=== PATIENT | female | born 1990 | race American Indian/Alaskan Native ===

== ENCOUNTER 2016-07-22 13:57 | Emergency (ER) | payer SELFPAY ==
[2016-07-22 14:26] VITALS: BP 136/93
--- NOTE | 2016-07-22 16:20 | Emergency Department Report ---
- General Chief complaint: Skin/Abscess/Foreign Body Stated complaint: RT ARMPIT POSS STAPH INFECTION Time Seen by Provider: 07/22/16 16:19 Source: patient Mode of arrival: Ambulatory Limitations: No Limitations - History of Present Illness MD complaint: abscess/boil -: days(s) - Related Data Allergies Allergy/AdvReac Type Severity Reaction Status Date / Time Sulfa (Sulfonamide AdvReac Intermediate Itching Unverified 11/12/14 13:16 Antibiotics) Abscess Boil HPI - HPI Chief Complaint: Skin/Abscess/Foreign Body Stated Complaint: RT ARMPIT POSS STAPH INFECTION Time Seen by Provider: 07/22/16 16:19 Duration: 3 Days Location: Other (right axilla) History: Yes Pain, No Fever, No Purulent Drainage Allergies/Adverse Reactions: Allergies Allergy/AdvReac Type Severity Reaction Status Date / Time Sulfa (Sulfonamide AdvReac Intermediate Itching Unverified 11/12/14 13:16 Antibiotics) ED Review of Systems ROS: Stated complaint: RT ARMPIT POSS STAPH INFECTION Other details as noted in HPI Constitutional: denies: chills, diaphoresis, fever, malaise ENT: denies: ear pain, throat pain Gastrointestinal: denies: abdominal pain, nausea, vomiting Musculoskeletal: back pain Skin: other Neurological: denies: headache (abscess) ED Past Medical Hx - Past Medical History Hx Seizures: Yes - Surgical History Past Surgical History?: No - Social History Smoking Status: Never Smoker Substance Use Type: None ED Physical Exam - General Limitations: No Limitations General appearance: alert, in no apparent distress - Head Head exam: Present: atraumatic, normocephalic - Eye Eye exam: Present: normal appearance, PERRL, EOMI - ENT ENT exam: Absent: normal exam, normal orophraynx, mucous membranes dry - Neck Neck exam: Present: normal inspection, full ROM. Absent: lymphadenopathy - Respiratory Respiratory exam: Present: normal lung sounds bilaterally. Absent: respiratory distress - Extremities Exam Extremities exam: Present: full ROM, normal capillary refill, other (right axillary cutaneous abscess) ED Course Vital Signs 07/22/16 14:22 Temperature 99.4 F Pulse Rate 88 Respiratory 22 Rate Blood Pressure 136/93 O2 Sat by Pulse 99 Oximetry - I & D Right Shoulder Type of Procedure: Simple Blade Size: 11 I & D Procedure: betadine prep, sterile drapes applied, sterile dressing applied , gauze wick placed Progress: Large cutaneous right axillary abscess. Anesthetized with 3 mL 1% lidocaine and incised with #11 scalpel draining copious amount of purulent discharge applied iodoform wick placed sterile dressing. Patient tolerated procedure would not permit Deloculation and lavage of the abscess cavity. He understands return in 48 hours for recheck. Critical care attestation.: If time is entered above; I have spent that time in minutes in the direct care of this critically ill patient, excluding procedure time. ED Disposition Clinical Impression: Axillary abscess Disposition: DISCHARGED TO HOME OR SELFCARE Is pt being admited?: No Condition: Stable Instructions: Dental Abscess (ED), Abscess Incision and Drainage (ED)
[2016-07-22] MEDS ORDERED: NORCO 5/325 PO ONE (16:30)
[2016-07-22] MEDS ORDERED: XYLOCAINE 1% 20 mL INFILTRATI ONE (16:30)
== END 2016-07-22 17:35 | disposition home or self-care (01) ==
LOC: ED 13:57
DX: L02.411 Cutaneous abscess of right axilla (principal); R56.9 Unspecified convulsions; Z88.2 Allergy status to sulfonamides

== ENCOUNTER 2017-09-10 08:18 | Emergency (ER) | payer MEDICAID ==
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
[2017-09-10 09:16] LABS: HCG Qualitative,Urine Negative (Negative)
[2017-09-10 12:40] VITALS: BP 112/68
--- NOTE | 2017-09-14 12:56 | Cat Scan Report ---
CT FACIAL BONES WITHOUT CONTRAST: HISTORY: Right sided facial swelling and pain. TECHNIQUE: Helical CT images with sagittal and coronal CT reformations. FINDINGS: All paranasal sinuses are clear. No sinus wall fracture, fluid level or opacification. The orbital cavities are symmetric and intact. The mandible is intact. The skull base and upper cervical spine demonstrate no evidence for acute injury. IMPRESSION: Unremarkable CT of the facial bones.
--- NOTE | 2017-09-14 12:56 | Cat Scan Report ---
CT HEAD WITHOUT CONTRAST: HISTORY: Right sided pain and swelling. TECHNIQUE: Sequential 2.5mm CT images. COMPARISON: none. FINDINGS: Cerebral Parenchyma: Within normal limits. Cerebellum: Within normal limits. Brainstem: Within normal limits. Ventricles: Normal. Sella: Normal. Extra-axial spaces: Normal. Basal Cisterns: Normal. Intracranial Hemorrhage: None. Midline Shift: None. Calvarium: Normal. Sinuses: Normal. Mastoid Air Cells: Normal. Visualized Orbits: Normal. IMPRESSION: Cranial CT scan within normal limits.
== END 2017-09-10 12:38 | disposition home or self-care (01) ==
LOC: ED 08:18
DX: R51 Headache (principal); Z88.2 Allergy status to sulfonamides; Y04.2XXA Assault by strike against or bumped into by another person, initial encounter; Y93.89 Activity, other specified; Y99.8 Other external cause status; Y92.89 Other specified places as the place of occurrence of the external cause
CPT/HCPCS: 70450; 70486; 81025

== ENCOUNTER 2017-10-28 00:10 | Emergency (ER) | payer MEDICAID ==
[2017-10-28 01:28] VITALS: BP 109/82
--- NOTE | 2017-10-28 03:58 | Emergency Department Report ---
[facility] Chief Complaint: Eye Problems Stated Complaint: RT EYE IRRITATION Time Seen by Provider: 10/28/17 03:10 Duration: 2 Days Side: Bilateral Severity: mild Symptoms: Yes Eye Itching, Yes Eye Redness, No Eye Pain, No Mucous Drainage, No Purulent Drainage, No Blurred Vision, No Preceding URI, No H/O Allergic Rhinitis , No Contact Lens Use, No Trauma, No Fever, No Headache Other History: This is a 26-year-old female nontoxic, well nourished in appearance, no acute signs of distress presents to the ED with c/o of bilateral eye redness, itching and crusting 2 days. Patient stated that symptoms started with right eye and now both eyes are similar. Patient denies any eye pain. Patient denies any blurred vision, or visual changes. Patient denies any chest pain, short of breath, fever, chills, nausea, vomiting, headache or stiff neck. Patient denies any significant past medical history with allergies to sulfa. ED Review of Systems ROS: Stated complaint: RT EYE IRRITATION Other details as noted in HPI Constitutional: denies: chills, fever Eyes: eye discharge. denies: eye pain, vision change ENT: denies: ear pain, throat pain Respiratory: denies: cough, shortness of breath, wheezing Cardiovascular: denies: chest pain, palpitations Endocrine: no symptoms reported Gastrointestinal: denies: abdominal pain, nausea, diarrhea Genitourinary: denies: urgency, dysuria, discharge Musculoskeletal: denies: back pain, joint swelling, arthralgia Skin: denies: rash, lesions Neurological: denies: headache, weakness, paresthesias Psychiatric: denies: anxiety, depression Hematological/Lymphatic: denies: easy bleeding, easy bruising ED Past Medical Hx - Past Medical History Previous Medical History?: No Hx Seizures: Yes - Surgical History Past Surgical History?: No - Social History Smoking Status: Never Smoker Substance Use Type: None - Medications Home Medications: Home Medications Medication Instructions Recorded Confirmed Last Taken Type Sulfamethoxazole/Trimethoprim 1 each PO BID #20 tablet 07/22/16 Unknown Rx [Bactrim DS TAB] traMADol [Ultram 50 MG tab] 50 mg PO Q4HR PRN #15 tablet 07/22/16 Unknown Rx Ibuprofen 800 mg PO Q6H PRN #20 tablet 09/10/17 Unknown Rx Ciprofloxacin 0.3% (Nf) 2 drops OU TID #1 drops 10/28/17 Unknown Rx [Ciprofloxacin OPTH] [facility] Exam - Exam General: Vital signs noted. No distress. Alert and acting appropriately. GENERAL: The patient is a well-developed, well-nourished in no apparent distress. Patient is alert and acting appropriately for age. Alert and oriented 3, no apparent distress, normal gait, atraumatic. HEENT: Head is normocephalic and atraumatic. PERRL, Extraocular muscles are intact. Pupils are equal, round, and reactive to light and accommodation. Bilateral erythema of sclera, itching and crusting. Nares appeared normal. Mouth is well hydrated and without lesions. Mucous membranes are moist. Posterior pharynx clear of any exudate or lesions. Mouth is well hydrated and without lesions. Tonsils not erythematous or swollen. Uvula midline. Tongue elevated. Mucous members are moist. Posterior pharynx clear, no exudate or lesions. Patent airways. NECK: Supple. No carotid bruits. No lymphadenopathy or thyromegaly.nontender. No meningitic signs are noted. LUNGS: Clear to auscultation. Non labor breathing. No intercostal retractions. Symmetrical with respiration, no wheezing, no rales, or crackles. HEART: Regular rate and rhythm without murmur, rubs or gallops. No reproducible. S1, S2 present, regular rate and rhythm without murmur, no rubs, no gallops. ABDOMEN: Soft, nontender, and nondistended. Positive bowel sounds. No hepatosplenomegaly was noted. No guarding or rebound tenderness, negative epigastric bruit. Negative psoas sign, negative camacho sign, negative McBurneys sign EXTREMITIES: Without any cyanosis, clubbing, rash, lesions or edema. Peripheral pulses intact. Capillary refill less than 2 seconds. Full range of motion bilaterally. NEUROLOGIC: Cranial nerves II through XII are grossly intact. Alert and oriented x 3. Normal gait. Symmetrical strength and sensation. Reflexes 2+ throughout. Cerebellar testing normal. GCS score of 15. PSYCHIATRIC: Normal affect with no suicidal or homicidal ideations. Eye Exam: Neither Injection, Neither Chemosis, Neither Abnormal Pupil, Neither EOMI, Neither Eye Foreign Body, Neither Lid Foreign Body, Neither Mucous Discharge, Neither Purulent Discharge, Neither Fluorescein Uptake, Neither Fluorescein Uptake (slit lamp), Neither Cell/Flare (slit lamp), Neither Corneal Edema, Neither Photophobia HEENT: No Nasal Congestion, No Pharyngeal Erythema Remainder of HEENT: Normal Lungs: Yes Clear Lung Sounds, Yes Good Air Exchange, No Wheezes, No Stridor, No Cough, No Nasal Flaring, No Retractions, No Use of Accessory Muscles ED Course Vital Signs 10/28/17 01:21 Temperature 98.3 F Pulse Rate 71 Respiratory 16 Rate Blood Pressure 109/82 O2 Sat by Pulse 100 Oximetry - Reevaluation(s) Reevaluation #1: 10/28/17 03:55 Patient is speaking in full sentences with no signs of distress noted. Critical care attestation.: If time is entered above; I have spent that time in minutes in the direct care of this critically ill patient, excluding procedure time. ED Disposition Clinical Impression: Conjunctivitis, both eyes Qualifiers: Conjunctivitis type: acute Acute conjunctivitis type: bacterial Qualified Code( s): H10.33 - Unspecified acute conjunctivitis, bilateral Disposition: - TO HOME OR SELFCARE Is pt being admited?: No Does the pt Need Aspirin: No Condition: Stable Instructions: Conjunctivitis (ED) Additional Instructions: Follow-up with a chief of party in 3-5 days or if symptoms worsen and continue return to emergency room as soon as possible. Prescriptions: Ciprofloxacin 0.3% (Nf) [Ciprofloxacin OPTH] 2 drops OU TID #1 drops Referrals: PRIMARY CAREMD [Primary Care Provider] - 3-5 Days AMERICO RAMIREZ MD [Staff Physician] - 3-5 Days [facility] [Outside] - 3-5 Days [facility] [Outside] - 3-5 Days Forms: Work/School Release Form(ED)
== END 2017-10-28 04:00 | disposition home or self-care (01) ==
LOC: ED 00:10
DX: H10.33 Unspecified acute conjunctivitis, bilateral (principal); Z88.2 Allergy status to sulfonamides
CPT/HCPCS: 99282

== ENCOUNTER 2018-09-10 19:28 | Emergency (ER) | payer MEDICAID ==
[2018-09-10] MEDS ORDERED: KEPPRA 1,000 MG/NS 0.75% 100ML 1,000 MG/100 ML BAG IV ONE (20:16)
[2018-09-10] MEDS ORDERED: NACL 0.9% 1000 ML 1,000 ML IV ONE (20:16)
--- NOTE | 2018-09-10 20:22 | Emergency Department Report ---
ED Seizure HPI - General Chief Complaint: Seizure Stated Complaint: SEIZURE,ABSCESS BOTH ARMS Time Seen by Provider: 09/10/18 20:13 Source: patient Mode of arrival: Ambulatory Limitations: No Limitations - History of Present Illness Initial Comments: Patient is 27 years old female with history of seizure. Patient presented to the ER was one episode of seizure, generalized tonic clonic seizure. Patient stated that she is out of her Keppra for the last 3 days. Patient denied any injury. No fever, chills, nausea or vomiting. Patient also denied any headache. Patient is complaining of bilateral swelling in her axilla for the last 4 weeks on and off. Patient had history of suppurative hydradenitis. MD Complaint: seizure -: This afternoon Description of Episode: loss of consciousness, tonic-clonic movement, post-event confusion Witnessed:: Yes Trauma: No Seizure History: known seizure disorder Place: home Possible Precipitating Event: none Associated Symptoms: denies other symptoms - Related Data Home Medications Medication Instructions Recorded Confirmed Last Taken levETIRAcetam [Keppra TAB] 750 mg PO BID 09/10/18 09/10/18 09/07/18 Allergies Allergy/AdvReac Type Severity Reaction Status Date / Time Sulfa (Sulfonamide AdvReac Intermediate Itching Verified 09/10/17 08:19 Antibiotics) ED Review of Systems ROS: Stated complaint: SEIZURE,ABSCESS BOTH ARMS Other details as noted in HPI Comment: All other systems reviewed and negative Constitutional: denies: chills, fever Respiratory: denies: cough, shortness of breath Cardiovascular: denies: chest pain, palpitations Gastrointestinal: denies: abdominal pain, nausea, vomiting Skin: lesions Neurological: denies: headache, weakness ED Past Medical Hx - Past Medical History Previous Medical History?: Yes Hx Seizures: Yes Hx Psychiatric Treatment: Yes (Bipolar) - Surgical History Past Surgical History?: No - Social History Smoking Status: Never Smoker Substance Use Type: None - Medications Home Medications: Home Medications Medication Instructions Recorded Confirmed Last Taken Type levETIRAcetam [Keppra TAB] 750 mg PO BID 09/10/18 09/10/18 09/07/18 History ED Physical Exam - General Limitations: No Limitations General appearance: alert, in no apparent distress - Head Head exam: Present: atraumatic, normocephalic, normal inspection - Eye Eye exam: Present: normal appearance, PERRL - ENT ENT exam: Present: normal exam, normal orophraynx, mucous membranes moist - Neck Neck exam: Present: normal inspection, full ROM. Absent: tenderness, meningismus, lymphadenopathy, thyromegaly - Respiratory Respiratory exam: Present: normal lung sounds bilaterally - Cardiovascular Cardiovascular Exam: Present: regular rate, normal rhythm, normal heart sounds - GI/Abdominal GI/Abdominal exam: Present: soft, normal bowel sounds. Absent: distended, tenderness, guarding, rebound, rigid, organomegaly, mass, bruit, pulsatile mass, hernia - Extremities Exam Extremities exam: Present: normal inspection, full ROM, normal capillary refill - Neurological Exam Neurological exam: Present: alert, oriented X3, CN II-XII intact - Skin Skin exam: Present: warm, erythema, other (bilateral suppurative hidradenitis, not fluctuant.) ED Course Vital Signs 09/10/18 09/10/18 09/10/18 19:35 19:57 20:00 Temperature 98.7 F 98.3 F Pulse Rate 119 H 97 H Respiratory 18 16 Rate Blood Pressure 104/63 94/60 Blood Pressure 90/64 [Left] O2 Sat by Pulse 98 100 100 Oximetry 09/10/18 09/10/18 21:00 23:00 Temperature Pulse Rate Respiratory Rate Blood Pressure 94/60 98/60 Blood Pressure [Left] O2 Sat by Pulse 100 Oximetry ED Medical Decision Making - Lab Data Result diagrams: 09/10/18 20:26 09/10/18 20:26 - Medical Decision Making Patient is 27 years old female with history of seizure. Patient presented to [facility] ER was one episode of seizure, generalized tonic clonic seizure. Patient stated that she is out of her Keppra for the last 3 days. Patient denied any injury. No fever, chills, nausea or vomiting. Patient also denied any headache. Patient is complaining of bilateral swelling in her axilla for the last 4 weeks on and off. Patient had history of suppurative hydradenitis. No seizure observed in the emergency room. Patient received 1 g of Keppra. Labs are reviewed and is unremarkable. Patient given a prescription for Keppra and strongly advised to follow-up with our neurologist in the next 2-3 days and advised to return to the ER if symptoms are not improved. Critical care attestation.: If time is entered above; I have spent that time in minutes in the direct care of this critically ill patient, excluding procedure time. ED Disposition Clinical Impression: Seizure, Suppurative hidradenitis, Arm pain Disposition: TO HOME OR SELFCARE Is pt being admited?: No Condition: Stable Instructions: Folliculitis (ED), Recurrent Seizures Adult (ED) Referrals: CHELA VILLANUEVA MD [Primary Care Provider] - 3-5 Days
[2018-09-10 20:43] LABS: Basophils % (Auto) 0.4 % (0.0-1.8); Eosinophils # (Auto) 0.2 K/mm3 (0.0-0.4); Eosinophils % (Auto) 2.2 % (0.0-4.3); Hematocrit 38.5 % (30.3-42.9); Hemoglobin 12.6 gm/dl (10.1-14.3); Lymphocytes # (Auto) 2.9 K/mm3 (1.2-5.4); Lymphocytes % (Auto) 40.6 % (13.4-35.0); Mean Corpuscular HGB Conc 33 % (30-34); Mean Corpuscular Volume 79 fl (79-97); Monocytes # (Auto) 0.4 K/mm3 (0.0-0.8); Monocytes % (Auto) 5.2 % (0.0-7.3); Platelet Count 247 K/mm3 (140-440); Red Cell Distribution Width 15.3 % (13.2-15.2)
[2018-09-10 20:59] LABS: Alanine Aminotransferase 7 units/L (7-56); Albumin 2.7 g/dL (3.9-5); BUN/Creatinine Ratio 10; Blood Urea Nitrogen 7 mg/dL (7-17); Calcium 7.9 mg/dL (8.4-10.2); Hemolysis Index 9
[2018-09-10 21:11] LABS: Bilirubin,Direct < 0.2 mg/dL (0-0.2)
--- NOTE | 2018-09-10 21:20 | XRay Report ---
PROCEDURE: XR HUMERUS 2+V RT TECHNIQUE: Frontal and lateral views right humerus HISTORY: swelling to the upper arm COMPARISONS: None FINDINGS: There is no evidence of fracture or subluxation. The soft tissues are unremarkable. IMPRESSION: 1. No evidence of fracture or subluxation. This document is electronically signed by Ghazala Fontana MD., Sep 10 2018 09:18:46 PM ET
[2018-09-10 23:14] VITALS: BP 98/60
== END 2018-09-10 23:41 | disposition home or self-care (01) ==
LOC: ED 19:28
DX: G40.309 Generalized idiopathic epilepsy and epileptic syndromes, not intractable, without status epilepticus (principal); L73.2 Hidradenitis suppurativa; M79.89 Other specified soft tissue disorders; Z88.2 Allergy status to sulfonamides
CPT/HCPCS: 36415; 73060; 80048; 80076; 85025; 96374; 99284; J1953; J7030

== ENCOUNTER 2019-05-10 00:40 | Outpatient (CLI) | payer MEDICAID, OTHER ==
[2019-05-10] MEDS ORDERED: LACTATED RINGERS 1,000 ML IV ONE (00:54)
[2019-05-10 01:20] LABS: Bacteria,Urine 1+ /HPF (Negative); Bilirubin,Urine NEG (Negative); Blood,Urine SM (Negative); Color,Urine Straw (Yellow); Protein,Urine <15 mg/dL mg/dL (Negative); Urobilinogen,Urine < 2.0 mg/dL (<2.0)
[2019-05-10 01:25] LABS: Amphetamine Screen,Urine PRESUMPTIVE NEGATIVE; Benzodiazepines Screen,Urine PRESUMPTIVE NEGATIVE; Cannabinoid Screen,Urine PRESUMPTIVE NEGATIVE; Cocaine Screen,Urine PRESUMPTIVE NEGATIVE; Methadone Screen,Urine PRESUMPTIVE NEGATIVE; Opiate Screen,Urine PRESUMPTIVE NEGATIVE
[2019-05-10] MEDS ORDERED: TERBUTALINE 1 MG/1 ML INJ SUB-Q ONE (01:29)
[2019-05-10] MEDS ORDERED: NIFEdipine*For Tocolysis only* 10 MG CAPSULE PO ONE (01:33)
[2019-05-10] MEDS ORDERED: TERBUTALINE 1 MG/1 ML INJ SUB-Q SCH (02:00)
[2019-05-10 03:34] VITALS: BP 106/64
== END 2019-05-10 04:01 | disposition home or self-care (01) ==
LOC: TRG 00:40
PROVIDERS: ATTEND Obstetrics & Gynecology
DX: O62.9 Abnormality of forces of labor, unspecified (principal); O26.853 Spotting complicating pregnancy, third trimester; O99.343 Other mental disorders complicating pregnancy, third trimester; F31.9 Bipolar disorder, unspecified; Z3A.30 30 weeks gestation of pregnancy
CPT/HCPCS: 80307; 81001; 96360; 96372; J3105; J7120

== ENCOUNTER 2019-05-31 | Emergency (ER) | payer SELFPAY | END 2019-06-01 02:00 | disposition home or self-care (01) | DX: R56.9 Unspecified convulsions (principal) | CPT/HCPCS: 36415; 80053; 81001; 82550; 83735; 84702; 85027; 93005; 93010; 96365; 99284; J1953 ==